=== PATIENT | male | born 1975 | race American Indian/Alaskan Native ===

== ENCOUNTER 2019-03-07 04:40 | Emergency (ER) | payer OTHER ==
[2019-03-07] MEDS ORDERED: SODIUM CHLORIDE 0.9% 500 ML 500 ML IV ONE (04:48)
[2019-03-07] MEDS ORDERED: ACETAMINOPHEN 500 MG TAB PO ONE (06:06)
[2019-03-07] MEDS ORDERED: SODIUM CHLORIDE 0.9% 1000 ML 1,000 ML ONE (06:12)
[2019-03-07] MEDS ORDERED: LIDOCAINE VISCOUS 2% 15 ML ORAL LIQD PO ONE (06:39)
--- NOTE | 2019-03-07 06:42 | Emergency Department Report ---
HPI - General Chief Complaint: Dyspnea/Respdistress Time Seen by Provider: 03/07/19 06:22 - HPI HPI: Room 19 The patient is a 43-year-old male presenting with a chief complaint of cough breath. Patient states his symptoms began yesterday with a cough has been nonproductive and and posttussive emesis. Patient admits to rhinorrhea and sore throat. The patient states this morning he awakened shaking and feeling short of breath cough to come to the emergency department. Patient now complains of feeling fatigued and having a sore throat ED Past Medical Hx - Past Medical History Previous Medical History?: No - Surgical History Past Surgical History?: Yes Additional Surgical History: left hand surgery - Family History Family history: no significant - Social History Smoking Status: Never Smoker Substance Use Type: Alcohol (occasional), Marijuana - Medications Home Medications: Home Medications Medication Instructions Recorded Confirmed Last Taken Type ALBUTEROL Inhaler (OR & NICU) 2 puff IH QID PRN #8.5 gram 03/07/19 Unknown Rx [ProAir HFA Inhaler] Benzonatate [Tessalon Perles] 100 mg PO Q8HR #30 capsule 03/07/19 Unknown Rx Ciprofloxacin HCl [Ciprofloxacin 500 mg PO Q12HR #20 tab 03/07/19 Unknown Rx TAB] HYDROcodone/APAP 5-325 [[place] 1 - 2 each PO Q6HR PRN #10 tablet 03/07/19 Unknown Rx 5/325] Ibuprofen [Motrin 800 MG tab] 800 mg PO Q8HR PRN #20 tablet 03/07/19 Unknown Rx ED Review of Systems ROS: Stated complaint: SHORTNESS OF BREATH Other details as noted in HPI Constitutional: chills, malaise. denies: fever Eyes: denies: eye pain ENT: congestion Respiratory: cough, shortness of breath Cardiovascular: denies: chest pain Endocrine: no symptoms reported Gastrointestinal: nausea, vomiting Genitourinary: denies: dysuria Musculoskeletal: denies: back pain Neurological: denies: headache Physical Exam - Physical Exam Vital Signs: Vital Signs 03/07/19 03/07/19 03/07/19 04:47 05:13 05:15 Temperature 102.8 F H Pulse Rate 136 H 121 H 118 H Respiratory 18 20 15 Rate Blood Pressure 153/89 105/57 O2 Sat by Pulse 95 91 94 Oximetry 03/07/19 03/07/19 03/07/19 05:31 05:45 06:01 Temperature Pulse Rate 116 H 116 H 121 H Respiratory 25 H 19 18 Rate Blood Pressure O2 Sat by Pulse 92 93 95 Oximetry 03/07/19 06:15 Temperature Pulse Rate 114 H Respiratory 15 Rate Blood Pressure 103/67 O2 Sat by Pulse 97 Oximetry Vital Signs 03/07/19 03/07/19 03/07/19 04:47 05:13 05:15 Temperature 102.8 F H Pulse Rate 136 H 121 H 118 H Respiratory 18 20 15 Rate Blood Pressure 153/89 105/57 Blood Pressure [Right] O2 Sat by Pulse 95 91 94 Oximetry 03/07/19 03/07/19 03/07/19 05:31 05:45 06:01 Temperature Pulse Rate 116 H 116 H 121 H Respiratory 25 H 19 18 Rate Blood Pressure Blood Pressure [Right] O2 Sat by Pulse 92 93 95 Oximetry 03/07/19 03/07/19 03/07/19 06:15 06:30 06:45 Temperature Pulse Rate 114 H 113 H 120 H Respiratory 15 14 Rate Blood Pressure 103/67 105/51 112/61 Blood Pressure [Right] O2 Sat by Pulse 97 97 Oximetry 03/07/19 03/07/19 03/07/19 07:01 07:31 07:55 Temperature 99.1 F Pulse Rate 104 H 102 H 102 H Respiratory 18 17 17 Rate Blood Pressure 112/61 105/51 Blood Pressure 106/61 [Right] O2 Sat by Pulse 94 97 97 Oximetry 03/07/19 03/07/19 03/07/19 08:01 08:30 09:00 Temperature Pulse Rate 102 H 95 H 90 Respiratory 16 17 16 Rate Blood Pressure 106/61 108/58 105/68 Blood Pressure [Right] O2 Sat by Pulse 97 98 97 Oximetry 03/07/19 03/07/19 09:30 10:00 Temperature Pulse Rate 90 92 H Respiratory 17 17 Rate Blood Pressure 114/67 106/56 Blood Pressure [Right] O2 Sat by Pulse 93 95 Oximetry Physical Exam: GENERAL: The patient is well-developed well-nourished male lying on stretcher not appearing to be in acute distress. HEENT: Normocephalic. Atraumatic. Extraocular motions are intact. Patient has moist mucous membranes. NECK: Supple. Trachea midline CHEST/LUNGS: Clear to auscultation. There is no respiratory distress noted. HEART/CARDIOVASCULAR: Regular. There is tachycardia. There is no gallop rub or murmur. ABDOMEN: Abdomen is soft, nontender. Patient has normal bowel sounds. There is no abdominal distention. SKIN: There is no rash. There is no edema. There is no diaphoresis. NEURO: The patient is awake, alert, and oriented. The patient is cooperative. The patient has normal speech MUSCULOSKELETAL: There is no tenderness or deformity. There is no limitation range of motion. There is no evidence of acute injury. ED Course Vital Signs 03/07/19 03/07/19 03/07/19 04:47 05:13 05:15 Temperature 102.8 F H Pulse Rate 136 H 121 H 118 H Respiratory 18 20 15 Rate Blood Pressure 153/89 105/57 O2 Sat by Pulse 95 91 94 Oximetry 03/07/19 03/07/19 03/07/19 05:31 05:45 06:01 Temperature Pulse Rate 116 H 116 H 121 H Respiratory 25 H 19 18 Rate Blood Pressure O2 Sat by Pulse 92 93 95 Oximetry 03/07/19 06:15 Temperature Pulse Rate 114 H Respiratory 15 Rate Blood Pressure 103/67 O2 Sat by Pulse 97 Oximetry ED Medical Decision Making - Lab Data Result diagrams: 03/07/19 05:13 03/07/19 05:13 Laboratory Tests 03/07/19 03/07/19 03/07/19 05:13 05:13 05:13 WBC 7.4 RBC 4.77 Hgb 12.7 Hct 38.8 MCV 81 L MCH 27 L MCHC 33 RDW 14.0 Plt Count 433 Lymph % (Auto) 20.3 [place] % (Auto) 5.8 Eos % (Auto) 1.9 Baso % (Auto) 0.8 Lymph # 1.5 [place] # 0.4 Eos # 0.1 Baso # 0.1 Seg Neutrophils % 71.2 H Seg Neutrophils # 5.3 PT 13.4 INR 1.01 VBG pH Sodium 143 Potassium 4.3 Chloride 101.3 Carbon Dioxide 24 Anion Gap 22 BUN 11 Creatinine 1.1 Estimated GFR > 60 BUN/Creatinine Ratio 10 Glucose 104 H Lactic Acid Calcium 9.6 Total Bilirubin 0.20 AST 17 ALT 14 Alkaline Phosphatase 74 Total Protein 7.3 Albumin 3.9 Albumin/Globulin Ratio 1.1 Urine Color Urine Turbidity Urine pH Ur Specific [place] Urine Protein Urine Glucose (UA) Urine Ketones Urine Blood Urine Nitrite Urine Bilirubin Urine Urobilinogen Ur Leukocyte Esterase Urine WBC (Auto) Urine RBC (Auto) Urine Mucus Influenza A (Rapid) Influenza B (Rapid) 03/07/19 03/07/19 03/07/19 05:13 05:13 06:05 WBC RBC Hgb Hct MCV MCH MCHC RDW Plt Count Lymph % (Auto) [place] % (Auto) Eos % (Auto) Baso % (Auto) Lymph # [place] # Eos # Baso # Seg Neutrophils % Seg Neutrophils # PT INR VBG pH 7.374 Sodium Potassium Chloride Carbon Dioxide Anion Gap BUN Creatinine Estimated GFR BUN/Creatinine Ratio Glucose Lactic Acid 2.10 H* Calcium Total Bilirubin AST ALT Alkaline Phosphatase Total Protein Albumin Albumin/Globulin Ratio Urine Color Straw Urine Turbidity Clear Urine pH 5.0 Ur Specific [place] 1.014 Urine Protein 100 mg/dl Urine Glucose (UA) Negative Urine Ketones Negative Urine Blood Negative Urine Nitrite Negative Urine Bilirubin Negative Urine Urobilinogen < 2.0 Ur Leukocyte Esterase Negative Urine WBC (Auto) 1.0 Urine RBC (Auto) 1.0 Urine Mucus Few Influenza A (Rapid) Influenza B (Rapid) 03/07/19 03/07/19 08:08 08:34 WBC RBC Hgb Hct MCV MCH MCHC RDW Plt Count Lymph % (Auto) [place] % (Auto) Eos % (Auto) Baso % (Auto) Lymph # [place] # Eos # Baso # Seg Neutrophils % Seg Neutrophils # PT INR VBG pH Sodium Potassium Chloride Carbon Dioxide Anion Gap BUN Creatinine Estimated GFR BUN/Creatinine Ratio Glucose Lactic Acid 1.20 Calcium Total Bilirubin AST ALT Alkaline Phosphatase Total Protein Albumin Albumin/Globulin Ratio Urine Color Urine Turbidity Urine pH Ur Specific [place] Urine Protein Urine Glucose (UA) Urine Ketones Urine Blood Urine Nitrite Urine Bilirubin Urine Urobilinogen Ur Leukocyte Esterase Urine WBC (Auto) Urine RBC (Auto) Urine Mucus Influenza A (Rapid) Negative Influenza B (Rapid) Negative - Radiology Data Radiology results: image reviewed (test x-ray) interpreted by me: Chest [id number] atelectasis versus early infiltrate - Differential Diagnosis influenza, sepsis, pneumonia, bronchitis Critical care attestation.: If time is entered above; I have spent that time in minutes in the direct care of this critically ill patient, excluding procedure time. ED Disposition Clinical Impression: Pneumonia Disposition: DC-01 TO HOME OR SELFCARE Is pt being admited?: No Does the pt Need Aspirin: No Condition: Stable Instructions: Bacterial Pneumonia (ED) Additional Instructions: Return to the emergency department should you develop worsening symptoms, inability to tolerate food or liquids, high fever or any other concerns Prescriptions: Ciprofloxacin HCl [Ciprofloxacin TAB] 500 mg PO Q12HR #20 tab Ibuprofen [Motrin 800 MG tab] 800 mg PO Q8HR PRN #20 tablet PRN Reason: Pain, Moderate (4-6) HYDROcodone/APAP 5-325 [[place] 5/325] 1 - 2 each PO Q6HR PRN #10 tablet PRN Reason: Pain ALBUTEROL Inhaler (OR & NICU) [ProAir HFA Inhaler] 2 puff IH QID PRN #8.5 gram PRN Reason: Shortness Of Breath Benzonatate [Tessalon Perles] 100 mg PO Q8HR #30 capsule Referrals: PRIMARY CARE, [Referring] - 3-5 Days Time of Disposition: 10:43
[2019-03-07 07:41] LABS: BUN/Creatinine Ratio 10; Blood Urea Nitrogen 11 mg/dL (9-20); Calcium 9.6 mg/dL (8.4-10.2)
[2019-03-07 07:42] LABS: Alanine Aminotransferase 14 units/L (7-56); Albumin 3.9 g/dL (3.9-5); Hemolysis Index 24
[2019-03-07 08:51] LABS: Color,Urine Straw (Yellow)
[2019-03-07 08:52] LABS: Bilirubin,Urine Negative (Negative); Blood,Urine Negative (Negative); Mucus,Urine Few /HPF; Urobilinogen,Urine < 2.0 mg/dL (<2.0)
--- NOTE | 2019-03-07 09:02 | XRay Report ---
SOFT TISSUE NECK, 2 VIEWS INDICATION / CLINICAL INFORMATION: sore throat. COMPARISON: None available. FINDINGS: Airway appears unremarkable. No airway distention. No suggestion for epiglottitis. No definite soft t issue abnormality. Visualized lung apices are clear. IMPRESSION: No acute abnormality identified. Signer Name: Asya Bob MD Signed: 03/07/2019 8:58 AM Workstation Name: [id number]
[2019-03-07 09:03] LABS: INR 1.01 (0.87-1.13)
[2019-03-07 09:33] LABS: Basophils # (Auto) 0.1 K/mm3 (0.0-0.1); Basophils % (Auto) 0.8 % (0.0-1.8); Eosinophils # (Auto) 0.1 K/mm3 (0.0-0.4); Eosinophils % (Auto) 1.9 % (0.0-4.3); Hematocrit 38.8 % (35.5-45.6); Hemoglobin 12.7 gm/dl (11.8-15.2); Lymphocytes # (Auto) 1.5 K/mm3 (1.2-5.4); Lymphocytes % (Auto) 20.3 % (13.4-35.0); Mean Corpuscular HGB Conc 33 % (32-34); Mean Corpuscular Volume 81 fl (84-94); Monocytes # (Auto) 0.4 K/mm3 (0.0-0.8); Monocytes % (Auto) 5.8 % (0.0-7.3); Platelet Count 433 K/mm3 (140-440); Red Blood Count 4.77 M/mm3 (3.65-5.03)
[2019-03-07 11:30] VITALS: BP 112/72
--- NOTE | 2019-03-10 13:01 | XRay Report ---
CHEST 1 VIEW INDICATION / CLINICAL INFORMATION: chest pain. COMPARISON: None available. FINDINGS: SUPPORT DEVICES: None. HEART / MEDIASTINUM: No significant abnormality. LUNGS / PLEURA: No significant pulmonary or pleural abnormality. No pneumothorax. ADDITIONAL FINDINGS: No significant additional findings. IMPRESSION: 1. No significant change Signer Name: Nadeem Holden MD Signed: 03/07/2019 5:29 AM Workstation Name: [id number]
== END 2019-03-07 11:08 | disposition home or self-care (01) ==
LOC: ED 04:40
DX: J18.9 Pneumonia, unspecified organism (principal); R11.10 Vomiting, unspecified; Z98.890 Other specified postprocedural states; F12.10 Cannabis abuse, uncomplicated; Z79.1 Long term (current) use of non-steroidal anti-inflammatories (NSAID); Z79.899 Other long term (current) drug therapy
CPT/HCPCS: 36415; 70360; 71045; 80053; 81001; 82140; 82805; 85025; 85610; 87040; 87086; 87400; 93005; 93010; 99284; J7030; 96360; 96361